=== PATIENT | female | born 1990 | race Caucasian/White ===

== ENCOUNTER 2016-11-12 07:04 | Inpatient (IN) | payer OTHER ==
[~2016-11-12] VITALS: Ht 172.7 cm; Wt 103.4 kg
[~2016-11-12 07:04] MED LIST: PREN-20 PO
[2016-11-12] MEDS ORDERED: Sodium Chloride LOK Flush 10 mL Syringe IVFLUSH PRN (07:40)
[2016-11-12] MEDS ORDERED: Lactated Ringer's 1,000 ML IV PRN (07:40)
[2016-11-12] MEDS ORDERED: Ondansetron 2 mg/mL 2 mL Inj IVPUSH PRN ×2 (07:40→12:25)
[2016-11-12] MEDS ORDERED: Hemorrhage Kit, Post Partum XX ONE ×2 (07:40→14:35)
[2016-11-12] MEDS ORDERED: Oxytocin 30 Units/500 mL LR 30 UNITS in IV Premix 1 EACH IV PRN ×2 (07:40→14:35)
[2016-11-12] MEDS ORDERED: Carboprost 250 mCg/mL Inj IM PRN ×2 (07:40→14:35)
[2016-11-12] MEDS ORDERED: Oxytocin 10 Unit/mL Inj IM PRN ×2 (07:40→14:35)
[2016-11-12] MEDS ORDERED: Methylergonovine 0.2 mg/mL Inj IM PRN ×2 (07:40→14:35)
[2016-11-12 08:38] LABS: Mean Corpuscular Hemoglobin 28.8 pg (27.0-35.0); Mean Corpuscular Volume 86.6 fL (81-100)
[2016-11-12] MEDS ORDERED: fentaNYL 2 mCg/mL-Bupiv 0.125% 100 ML EPIDURAL SCH (12:25)
[2016-11-12] MEDS ORDERED: Lactated Ringer's 500 ML IV ONE (12:25)
[2016-11-12] MEDS ORDERED: EPHEDrine Sulfate 50 mg/mL Inj IVPUSH PRN (12:25)
[2016-11-12] MEDS ORDERED: Atropine 1 mg/10 mL (Code) Syringe IVPUSH PRN (12:25)
--- NOTE | 2016-11-12 12:55 | PCM.HPANE ---
Patient Data Date of Service: Nov 12, 2016 Surgeon Admitting Provider:Wali Vaz MD Attending Provider:Wali Vaz MD Primary Care Physician:oRdolfo Randall MD Other Provider:Aminta Chery Anesthesia Reason for Visit Labor Check LABOR CHECK Ht/WT & BMI Height (Centimeters): 172 Weight (Kilograms): 103 Body Mass Index Allergies Coded Allergies: No Known Allergies (Unverified Allergy, Unknown, 05/17/15) Diabetes History Hx Diabetes?: No Medications Home Meds Incl Beta Machelle: No Reported Medications Pnv with Ca,No.71/Iron/FA ( Vitamin Tablet)1 Each Tablet1 Each PO DAILY 05/17/15 History Hx of Heart Problems?: No Hx of Respiratory Problem?: No Hx Neurologic Problems?: No Female Hx: Positive for:: Currently Smoking Status: Never Smoker Stop/Bang Risk Assessment Category Category 1A: Patient has history of documented sleep apnea, and HAS NOT received any narcotic, sedative or anesthesia administration during this stay. Category 1B: Patient has history of documented sleep apnea, and HAS received any narcotic , sedative or anesthesia administration during this stay Category 2: Patient has SUSPECTED Obstructive Sleep Apnea, and HAS received any narcotic , sedative or anesthesia administration during this stay. Category 3: Patient has SUSPECTED Obstructive Sleep Apnea and HAS NOT received narcotic, sedative or anesthesia administration during this stay. Category 4: Outpatient in Procedural Areas with known sleep apnea or who screen positive for High Risk via the STOP/BANG questionnaire. Exam Exam General Appearance: Alert, Oriented X3, Cooperative, Mild Distress HEENT/AIRWAY: MP 2 Lungs: Normal Air Movement Heart: Exam Unremarkable Meds/Labs/Diagnostics Labs Test 11/12/16 08:00 White Blood Count 8.1th/mm3 (3.8-10.1) Red Blood Count 3.96mil/mm3 (3.90-5.20) Hemoglobin 11.4g/dL (12.0-15.6) Hematocrit 34.3% (35.0-46.0) Mean Corpuscular Volume 86.6fL (81-100) Mean Corpuscular Hemoglobin 28.8pg (27.0-35.0) Mean Corpuscular Hemoglobin Concent 33.2% (32.0-37.0) Red Cell Distribution Width 12.9% (12.3-15.4) Platelet Count 185bil/L (150-400) Plan Impression Patient chart reviewed, patient interviewed and anesthestic plan with risks, benefits, and alternatives discussed, and informed consent obtained. ASA Physical Status: ASA2 Mod Systemic Disease Anesthetic Plan: Epidural Bene/Risks/Altern/Consents: Yes HP Complete Prior to Induction: Yes Pierre Jacobson MD Nov 12, 2016 12:27
[2016-11-12] MEDS: Lactated Ringer's 1,000 ML IV SCH ×2 (13:13→14:04)
[2016-11-12] MEDS ORDERED: Lactated Ringer's 1,000 ML IV SCH (14:31)
[2016-11-12] MEDS ORDERED: Benzocaine (Dermoplast) 20% 60 Gm Spray TOPICAL PRN (14:35)
[2016-11-12] MEDS ORDERED: LANOlin HPA 7 Gm Ointment TOPICAL PRN (14:35)
[2016-11-12] MEDS ORDERED: HYDROcodone-APAP 5-325 mg Tablet PO PRN (14:35)
[2016-11-12] MEDS ORDERED: Witch Hazel-Glycerin Pads TOPICAL PRN (14:35)
--- NOTE | 2016-11-12 22:21 | PCM.ANEP1 ---
Post Anesthesia Phase 1 PACU Phase 1 Assessment Date of Service: Nov 12, 2016 Vital Signs VSS see nurses notes Anesthetic Administered: Epidural Level of Alertness: Awake, talking GALAN's with Equal Strength: Yes Pain: No Pain Scale Score: 0 Nausea or Vomiting: No Oxygen Delivery: Room Air Lungs: Normal Air Movement Pierre Jacobson MD Nov 12, 2016 22:21
--- NOTE | 2016-11-12 22:22 | PCM.ANEP2 ---
Post Anesthesia Evaluation ASA/CMS Post Anesthesia Date of Service: Nov 12, 2016 VS in Patient's Normal Range?: Yes Resp Stable; Airway Patent?: Yes CV Function & Hydration Stable: Yes Mental Status Recovered?: Yes Pain control Satisfactory?: Yes N/V Control Satisfactory?: Yes Pierre Jacobson MD Nov 12, 2016 22:22
--- NOTE | 2016-11-12 23:57 | OP ---
[address] [address] OPERATIVE REPORT PATIENT: LIVE CAMPUZANO : 1990 MR#: [id number] ADMIT: 11/12/2016 JOB ID: [id number] DATE OF SURGERY: 11/12/2016. PREOPERATIVE DIAGNOSIS(ES): POSTOPERATIVE DIAGNOSIS(ES): SURGEON: DELIVERY SUMMARY: On November 12, 2016, at 2:12 p.m., this 26-year-old, G2, P1 female at 40 weeks estimated gestational age, delivered an infant male with Apgars of 9 and 9 by normal vaginal delivery. The patient presented having spontaneous rupture of membranes at home with irregular contractions. The fluid was noted to be clear. She ruptured her membranes at about 4 a.m., but did not present here until about 7:30 a.m. She was 2 cm, 80%, -2 station. She wanted to walk for a bit and so we let her do this, but at around 10 a.m. we started Pitocin because she still was in an irregular contraction pattern. She progressed quickly to 3-4 cm, at which point, she desired an epidural. She was known to be GBS negative so no additional antibiotics were needed. The patient had received her epidural without complication and progressed in a quick manner to complete by around 2 p.m. She proceeded to push for 2-3 pushes and delivered rapidly across a second-degree midline perineal laceration. The placenta delivered approximately five minutes later spontaneously and intact with a three-vessel cord. Pitocin was increased for tone control over the uterus. The cord was clamped and cut, and the cord blood was sent for analysis. Approximately 300 cc of estimated blood loss were noted. No other complications were noted. Following delivery the patient's uterus was firm, her cervix intact, and her rectum was intact. Counts were correct x2. She was in excellent condition.
[2016-11-13 06:40] LABS: Mean Corpuscular Hemoglobin 29.7 pg (27.0-35.0); Mean Corpuscular Volume 86.7 fL (81-100)
--- NOTE | 2016-11-13 10:54 | PCM.DIOB ---
Obstetrical Disch Instruction Dates of Hospitalization Date of Hospital Admission Nov 12, 2016 at 07:30 Providers Admitting Physician: Wali Vaz MD Primary Care Physician: Rodolfo Randall MD Attending Physician: Wali Vaz MD Discharge Diagnosis Problems: (1) Status: Acute ICD Code: Z33.1 (2) Status post normal vaginal delivery Status: Acute ICD Code: [id number] Diet Discharge Diet: No restrictions Activity Discharge Activity-General: Pelvic Rest for 6 weeks Dressing and Incisional Care Hygiene: May shower, Perineal care, Sitz bath, Dermoplast spray, Witch Alehta pads, Ice Follow Up Plan Follow-up appointment: Weeks (Follow up in 8 weeks for checkup with Dr. Wali Vaz.) Call your provider for: Fever or Chills, Shortness of breath, Heavy vaginal bleeding, Red painful breasts Ronak Holt MD Nov 13, 2016 10:54
[2016-11-13] MEDS ORDERED: IBUP800T28 PO (10:56)
[2016-11-13 11:20] VITALS: BP 123/68; PULSE 89; RESP 20
--- NOTE | 2016-11-16 08:18 | DIS ---
[address] [address] DISCHARGE SUMMARY PATIENT: LIVE CAMPUZANO : 1990 MR#: [id number] ADMIT: 11/12/2016 JOB ID: [id number] DIS: 11/13/2016 DISCHARGE DIAGNOSIS: Term , delivered. PROCEDURES PERFORMED DURING HOSPITALIZATION: 1. Vaginal delivery. 2. Epidural anesthesia. HOSPITAL COURSE: The patient admitted to [facility] at term by Dr. Vaz, with spontaneous rupture of membranes and irregular contractions. Pitocin augmentation was provided as was epidural. Ultimately vaginal delivery occurred. During the timeframe, the patient did well, with stable vitals, afebrile, with reasonable bleeding, voiding, ambulating, with appropriate pain control, and without leg pain or shortness of breath. She handled the baby well. hemoglobin was 10.7. The patient requested discharge to home on the first day, i.e., on November 13, 2016. DISCHARGE PROGRAM: The patient will call p.r.n., yet otherwise she will followup with Dr. Wali Vaz in eight weeks per his instruction. She will observe pelvic rest for six weeks. DISCHARGE MEDICATIONS: Include ibuprofen (prescription given) and vitamin (patient has supply at home).
== END 2016-11-13 14:28 | disposition home or self-care (01) | DRG 775 ==
LOC: FBCO 07:04 → FBC 07:30
PROVIDERS: ADMIT Family Medicine; ATTEND Family Medicine
PROC: 10E0XZZ Delivery of Products of Conception, External Approach (ICD-10-PCS; principal; 2016-11-12)
DX: O62.3 Precipitate labor (principal); Z37.0 Single live birth; Z3A.40 40 weeks gestation of pregnancy